=== PATIENT | female | born 1945 | race Caucasian/White ===

== ENCOUNTER 2019-06-27 05:15 | Inpatient (IN) | payer MEDICARE ==
[2019-06-21 09:50] LABS: BASOPHILS # (AUTO) 0.1 (0.0-0.1); BASOPHILS % 0.8 % (0.0-1.0); EOSINOPHILS # (AUTO) 0.1 (0.0-0.4); EOSINOPHILS % 1.5 % (0.0-6.0); HEMATOCRIT 41.6 % (34.2-44.1); HEMOGLOBIN 13.5 g/dL (12.0-16.0); LYMPHOCYTES # (AUTO) 2.3 (1.0-3.2); LYMPHOCYTES % 35.3 % (18.0-39.1); MEAN CORPUSCULAR HEMOGLOBIN 29.6 pg (28-32); MEAN CORPUSCULAR HGB CONC 32.5 g/dL (31-35); MEAN CORPUSCULAR VOLUME 91.2 fL (81-99); MONOCYTES # (AUTO) 0.6 (0.2-0.8); MONOCYTES % 9.7 % (4.4-11.3); NEUTROPHILS # (AUTO) 3.4 (2.1-6.9); NEUTROPHILS % 52.5 % (38.7-80.0); PLATELET COUNT 216 x10e3/uL (140-360); RED BLOOD COUNT 4.56 x10e6/uL (3.6-5.1); RED CELL DISTRIBUTION WIDTH 13.4 % (11.7-14.4)
[2019-06-21 10:12] LABS: ANION GAP 12.5 mmol/L (8-16); CALCIUM 9.5 mg/dL (8.4-10.2); CREATININE, SERUM 0.92 mg/dL (0.57-1.11); POTASSIUM 4.5 mmol/L (3.5-5.1)
--- NOTE | 2019-06-21 10:15 | Diagnostic Imaging Report ---
Exam: PA and lateral chest radiograph Clinical history: Preoperative clearance next Findings: The cardiac size is mildly enlarged. There is no evidence of pulmonary consolidation, pleural effusion, or pneumothorax. A 1 mm calcific density structure is seen overlying the mid thoracic vertebra on the lateral The represents a calcified granuloma. The regional osseous structures are unremarkable. Impression: 1. Mild cardiomegaly. Otherwise, no radiographic evidence of acute cardiorespiratory disease. Signed by: Dr. Julio Nieto MD on 06/21/2019 10:12 AM
[~2019-06-27] VITALS: Ht 160 cm; Wt 124.7 kg
[~2019-06-27 05:15] MED LIST: GABAPENTIN300 MG PO; HYDROCHLOROTHIA25 MG PO; LEVOTHYROXINE50 MCG PO; METOPROLOL TART50 MG PO
--- OUTSIDE RECORDS SUMMARY | 2019-06-27 05:17 | XMS REPORT | Summary of Care ---
Author Author [facility] - Health Organization [facility] - Health Address Unknown Phone Unavailable Care Team Providers Care Grill Chef Name Role Phone Yenny Chew MD PCP Reason for Visit * Reason Comments Rx Concern/Question Encounter Details Care Team Description Date Type Department Yenny Chew MD [address] [place] [address] Dr [facility] [address] [place] [address] Rx Concern/Question 11/17/[address] [facility]- [address], [address] [place] [address] Allergies Comments Active Allergy Reactions Severity Noted Date Morphine Hallucination 12/24/2015 s documented as of this encounter (statuses as of 11/19/2018) Medications End Date Status Medication Sig Dispensed Refills Start Date Active VIT Take by 0 CALC,IRON,FOLIC ( mouth. VITAMIN ORAL) Active wugm-eytqhn-pyd#7-C-logan- Take 600 mg 90 tablet 3 boron by mouth 8 (GLUCOSAMINE-CHONDR, daily. DESIRAE,) 178-020-54-1-3 mg TabIndications: Chronic bilateral low back pain with bilateral sciatica, Sciatic leg pain Active Alpha Lipoic Acid 600 mg Start with 90 capsule 3 CapIndications: Chronic 300 mg for a 8 bilateral low back pain week. with bilateral sciatica, Increase to Sciatic leg pain 600 mg daily if there are no problems. Active montelukast 10 mg Take 1 tablet 30 tablet 0 tabletIndications: by mouth 8 Allergic cough daily. Active hydroCHLOROthiazide 50 mg Take 0.5 45 tablet 3 tabletIndications: tablets by 8 Essential hypertension, mouth daily. benign Active metoprolol tartrate 50 mg Take 1 tablet 270 tablet 3 tabletIndications: by mouth 3 8 Essential hypertension, (three) times benign daily. Active ibuprofen (ADVIL) 200 mg Take 200 mg 0 tablet by mouth every 6 (six) hours as needed. Active gabapentin 300 mg capsule TAKE BY MOUTH 3 1 CAPSULE IN 9 THE MORNING AND AT NOON AND 2 CAPSULES AT NIGHT Active Nebulizer & Compressor Use as 1 Device 0 For Neb DeviIndications: directed 9 Wheezing Active levothyroxine 25 mcg Take 1 tablet 30 tablet 11 tabletIndications: by mouth 9 Essential hypertension, every benign morning. Active cyclobenzaprine 10 mg Take 1 tablet 15 tablet 0 tabletIndications: Right by mouth 3 9 lower quadrant abdominal (three) times pain daily as needed for Muscle Spasms. Active gabapentin 300 mg TAKE BY MOUTH 120 capsule 3 capsuleIndications: 1 CAPSULE IN 9 Sciatic leg pain, Chronic THE MORNING bilateral low back pain AND AT NOON with bilateral sciatica AND 2 CAPSULES AT NIGHT Active gabapentin 100 mg Take 1 180 capsule 1 capsuleIndications: capsule by 9 Sciatic leg pain mouth 2 (two) times daily. 11/19/2018 Discontinued gabapentin 100 mg Take 1 180 capsule 1 capsuleIndications: capsule by 9 Sciatic leg pain mouth 2 (two) times daily. Take 1 pill three times a day. documented as of this encounter (statuses as of 11/19/2018) Active Problems Problem Noted Date Trochanteric bursitis of both hips 05/04/2018 Overview: Added automatically from request for surgery [id number] Sacroiliac joint pain 05/04/2018 Overview: Added automatically from request for surgery [id number] Lumbar radiculopathy, right 09/04/2017 Overview: Added automatically from request for surgery [id number] Chronic bilateral low back pain with bilateral sciatica 09/04/2017 Overview: Added automatically from request for surgery [id number] Essential hypertension, benign 07/04/2016 Sciatic leg pain 07/04/2016 Morbid obesity with BMI of 40.0-44.9, adult 01/21/2016 UTI (lower urinary tract infection) 01/07/2016 Total knee replacement status 11/12/2015 Arthralgia of both knees 10/23/2015 Right leg pain 08/24/2015 documented as of this encounter (statuses as of 11/19/2018) Immunizations Name Administration Dates Next Due Influenza High Dose 01/29/2018 Pneumococcal 13 01/29/2018 Conjugate, PCV13 (Prevnar 13) documented as of this encounter Social History Date Tobacco Use Types Packs/Day Years Used Never Smoker Smokeless Tobacco: Never Used Drinks/Week oz/Week Comments Alcohol Use 0 Standard drinks or equivalent 0.0 No Sex Assigned at Date Recorded Not on file Industry Job Start Date Occupation Not on file Not on file Not on file Travel End Travel History Travel Start No recent travel history available. documented as of this encounter Last Filed Vital Signs Not on filedocumented in this encounter Plan of Treatment Care Team Description Date Type Specialty Harshal Comer DO [facility] [place] [address] [phone] 03/31/2019 Office Visit Pulmonary Disease Yenny Chew MD [address] [place] [address] Dr [address] [place] [address] [phone] 04/01/2019 Office Visit Internal Medicine Health Maintenance Due Date Last Done Comments DTaP,Tdap,and Td Vaccines 1962 (1 - Tdap) Osteoporosis Screening 2008 INFLUENZA VACCINE 12/26/2018 01/29/2018, 01/26/2017 Zoster Recombinant 02/28/2019 Postponed from 1993 Vaccine (SHINGRIX) (1 of (Parent Refused) 2) Medicare Wellness Visit 03/16/2019 03/16/2018, 03/16/2017 MAMMOGRAM 04/13/2019 04/13/2018, 04/01/2017, 03/16/2017 (Previously completed) COLONOSCOPY 01/22/2025 01/22/2015 PNEUMOCOCCAL VACCINES 65+ Completed 01/29/2018, 03/16/2017, 03/16/2017 documented as of this encounter Implants Device Identifier Shelf Expiration Date Model / Serial / Lot Implanted Type Area Manufactur er 05/27/2019 [id number] / [id number] / [id number] Bone Cement With Gentamycin CEMENT Right: Knee Dipika Implanted: Qty: 1 on 11/12/2015 by Kashmir Arrington MD at [facility] 05/27/2019 [id number] / [id number] / [id number] Bone Cement With Gentamycin CEMENT Left: Knee Dipika Implanted: Qty: 1 on 01/21/2016 by Kashmir Arrington MD at [facility] 05/27/2019 [id number] / [id number] / [id number] Bone Cement With Gentamycin CEMENT Left: Knee Dipika Implanted: Qty: 1 on 01/21/2016 by Kashmir Arrington MD at [facility] 08/27/2025 [id number] / [id number] / [id number] Ps Open Box Femoral Right KNEE Right: Knee Biomet Implanted: Qty: 1 on 11/12/2015 by Kashmir Arrington MD at [facility] 07/24/2025 [id number] / [id number] / [id number] Regenerex Primary Tibial Tray KNEE Right: Knee Biomet Implanted: Qty: 1 on 11/12/2015 by Kashmir Arrington MD at [facility] 06/18/2025 [id number] / [id number] / [id number] Modular Finned Stem KNEE Right: Knee Biomet Implanted: Qty: 1 on 11/12/2015 by Kashmir Arrington MD at [facility] 09/04/2020 [id number] / [id number] / [id number] Ps Tibial Bearing KNEE Right: Knee Biomet Implanted: Qty: 1 on 11/12/2015 by Kashmir Arrington MD at [facility] 08/25/2020 [id number] / [id number] / [id number] Series - A Standard Patella KNEE Right: Knee Biomet Implanted: Qty: 1 on 11/12/2015 by Kashmir Arrington MD at [facility] 12/10/2025 [id number] / [id number] / [id number] Ps Open Box Femoral Left KNEE Left: Knee Biomet Implanted: Qty: 1 on 01/21/2016 by Kashmir Arrington MD at [facility] 10/18/2020 [id number] / [id number] / [id number] Series A Standard Patella KNEE Left: Knee Biomet Implanted: Qty: 1 on 01/21/2016 by Kashmir Arrington MD at [facility] 09/07/2020 [id number] / [id number] / [id number] Ps Tibial Bearing KNEE Left: Knee Biomet Implanted: Qty: 1 on 01/21/2016 by Kashmir Arrington MD at [facility] 10/25/2024 [id number] / [id number] / [id number] Fixed Cruciate Tibial Plate With PLATE Left: Knee Biomet Locking Bar Implanted: Qty: 1 on 01/21/2016 by Kashmir Arrington MD at [facility] documented as of this encounter Results Not on filedocumented in this encounter Visit Diagnoses Diagnosis Sciatic leg pain documented in this encounter Insurance Type Payer Benefit Subscriber ID Effective Phone Address Plan / Dates Group Medicare Adv PPO AETNA - MANAGED MEDICARE AETNA [id number] 2015-P P O BOX MEDICARE resent [id number] [place] [address] documented as of this encounter
--- OUTSIDE RECORDS SUMMARY | 2019-06-27 05:18 | XMS REPORT | Summary of Care ---
Author Author [facility] - Health Organization [facility] - Health Address Unknown Phone Unavailable Care Team Providers Care Program Aide Group Work Name Role Phone Yenny Chew MD PCP Harshal Comer DO Unavailable Sebastián Rudd MD 3 Reason for Visit * Reason Comments Pre-op Clearance [facility] Encounter Details Care Team Description Date Type Department Pauline Dupree MD [address] [place] [address] [address] [place] [address] Pre-op Clearance ([facility]) 06/23/2019 Telephone [facility] Cardiology- [address], [address] [place] [address] Allergies Comments Active Allergy Reactions Severity Noted Date Morphine Hallucination 12/24/2015 s documented as of this encounter (statuses as of 06/23/2019) Medications End Date Status Medication Sig Dispensed Refills Start Date Active VIT Take by 0 CALC,IRON,FOLIC ( mouth. VITAMIN ORAL) Active zubw-jfqgkl-yny#7-C-logan- Take 600 mg 90 tablet 3 boron by mouth 8 (GLUCOSAMINE-CHONDR, daily. DESIRAE,) 374-256-35-1-3 mg TabIndications: Chronic bilateral low back pain with bilateral sciatica, Sciatic leg pain Active Alpha Lipoic Acid 600 mg Start with 90 capsule 3 CapIndications: Chronic 300 mg for a 8 bilateral low back pain week. with bilateral sciatica, Increase to Sciatic leg pain 600 mg daily if there are no problems. Active ibuprofen (ADVIL) 200 mg Take 200 mg 0 tablet by mouth every 6 (six) hours as needed. Active levothyroxine 25 mcg Take 1 tablet 30 tablet 11 tabletIndications: by mouth 9 Essential hypertension, every benign morning. Active fluticasone propionate 50 Use 1 [place] 16 g 2 mcg/actuation nasal in each 9 sprayIndications: nostril 2 Allergic rhinitis, (two) times unspecified seasonality, daily. unspecified trigger Active ALBUTEROL 2.5 mg /3 mL INHALE 3 ML 75 mL 3 (0.083 %) nebulizer EVERY 4 9 solutionIndications: (FOUR) HOURS Wheezing NEEDED FOR WHEEZING OR SHORTNESS OF BREATH. Active gabapentin 300 mg Take 1 270 capsule 3 capsuleIndications: capsule by 9 Sciatic leg pain, Chronic mouth 3 bilateral low back pain (three) times with bilateral sciatica daily. Active hydroCHLOROthiazide 50 mg Take 0.5 45 tablet 3 tabletIndications: tablets by 9 Essential hypertension, mouth daily. benign Active metoprolol tartrate 50 mg Take 1 tablet 270 tablet 3 tabletIndications: by mouth 3 9 Essential hypertension, (three) times benign daily. documented as of this encounter (statuses as of 06/23/2019) Active Problems Problem Noted Date Trochanteric bursitis of both hips 05/04/2018 Overview: Added automatically from request for surgery [id number] Sacroiliac joint pain 05/04/2018 Overview: Added automatically from request for surgery [id number] Lumbar radiculopathy, right 09/04/2017 Overview: Added automatically from request for surgery [id number] Chronic bilateral low back pain with bilateral sciatica 09/04/2017 Overview: Added automatically from request for surgery [id number] Essential hypertension, benign 07/04/2016 Sciatic leg pain 07/04/2016 Morbid obesity with BMI of 40.0-44.9, adult 01/21/2016 UTI (lower urinary tract infection) 01/07/2016 Total knee replacement status 11/12/2015 Arthralgia of both knees 10/23/2015 Right leg pain 08/24/2015 documented as of this encounter (statuses as of 06/23/2019) Immunizations Name Administration Dates Next Due Influenza High Dose 01/25/2019, 01/29/2018 Pneumococcal 13 01/29/2018 Conjugate, PCV13 (Prevnar 13) Td 04/01/2016 documented as of this encounter Social History [...] Treatment Care Team Description Date Type Specialty Pauline Dupree MD [address] [place] [address] [address] [place] [address] [phone] 11/02/2019 Office Visit Cardiology Harshal Comer DO [facility] [place] [phone] 04/05/2020 Office Visit Pulmonary Disease Health Maintenance Due Date Last Done Comments Medicare Wellness Visit 04/01/2020 04/01/2019, 03/16/2018, 03/16/2017 Zoster Recombinant 04/01/2020 Postponed from 1993 Vaccine (SHINGRIX) (1 of (Refused) 2) DTaP,Tdap,and Td Vaccines 05/10/2025 04/01/2016 Postponed from 1954 (1 - Tdap) (Alternative Guidelines) Osteoporosis Screening 04/12/2029 04/12/2019 PNEUMOCOCCAL VACCINES 65+ Completed 01/29/2018, 03/16/2017, 03/16/2017 INFLUENZA VACCINE Completed 01/25/2019, 01/29/2018 documented as of this encounter Implants Device Identifier Shelf Expiration Date Model / Serial / Lot Implanted Type Area Manufactur er 05/27/2019 [id number] / [id number] / [id number] Bone Cement With Gentamycin CEMENT Right: Knee Dipika Implanted: Qty: 1 on 11/12/2015 by Kashmir Arrington MD at [facility] 05/27/2019 23-7426-231-01 / [id number] / [id number] Bone Cement With Gentamycin CEMENT Left: Knee Dipika Implanted: Qty: 1 on 01/21/2016 by Kashmir Arrington MD at [facility] 05/27/2019 31-1243-703-01 / [id number] / [id number] Bone Cement With Gentamycin CEMENT Left: Knee Dipika Implanted: Qty: 1 on 01/21/2016 by Kashmir Arrington MD at [facility] 08/27/2025 [id number] / [id number] / [id number] Ps Open Box Femoral Right KNEE Right: Knee Biomet Implanted: Qty: 1 on 11/12/2015 by Kashmir Arrington MD at [facility] 07/24/2025 [id number] / [id number] / [id number] Regenerex Primary Tibial Tray KNEE Right: Knee Biomet Implanted: Qty: 1 on 11/12/2015 by Kashmir Arrington MD at [facility] 06/18/2025 [id number] / [id number] / [id number] Modular Finned Stem KNEE Right: Knee Biomet Implanted: Qty: 1 on 11/12/2015 by Kashmir Arrington MD at [facility] 09/04/2020 [id number] / [id number] / [id number] Ps Tibial Bearing KNEE Right: Knee Biomet Implanted: Qty: 1 on 11/12/2015 by Kashmir Arrington MD at [facility] 08/25/2020 [id number] / [id number] / [id number] Series - A Standard Patella KNEE Right: Knee Biomet Implanted: Qty: 1 on 11/12/2015 by Kashmir Arrington MD at [facility] 12/10/2025 [id number] / [id number] / [id number] Ps Open Box Femoral Left KNEE Left: Knee Biomet Implanted: Qty: 1 on 01/21/2016 by Kashmir Arrington MD at [facility] 10/18/2020 [id number] / [id number] / [id number] Series A Standard Patella KNEE Left: Knee Biomet Implanted: Qty: 1 on 01/21/2016 by Kashmir Arrington MD at [facility] 09/07/2020 [id number] / [id number] / [id number] Ps Tibial Bearing KNEE Left: Knee Biomet Implanted: Qty: 1 on 01/21/2016 by Kashmir Arrington MD at [facility] 10/25/2024 [id number] / [id number] / [id number] Fixed Cruciate Tibial Plate With PLATE Left: Knee Biomet Locking Bar Implanted: Qty: 1 on 01/21/2016 by Kashmir Arrington MD at [facility] documented as of this encounter Results Not on filedocumented in this encounter Insurance Type Payer Benefit Subscriber ID Effective Phone Address Plan / Dates Group Medicare Adv PPO AETNA - MANAGED MEDICARE AETNA [id number] 2015-P [address] BOX MEDICARE resent [id number] [place] [id number] documented as of this encounter
--- OUTSIDE RECORDS SUMMARY | 2019-06-27 05:18 | XMS REPORT ---
Author Author [facility] Address Unknown Phone Unavailable Care Team Providers Care Clinician Oncology Name Role Phone Jamie JOHNSON Unavailable Unavailable Problems This patient has no known problems. Allergies, Adverse Reactions, Alerts This patient has no known allergies or adverse reactions. Medications This patient has no known medications. Results Test Description Test Time Test Comments Text Results Atomic Results Result Comments CHEST 2 VIEWS 2019-06-21 10:10:00 [place] [address] Patient Name: VEE ALLEN MR #: [id number] : 1945 Age/Sex: 74/F Req #: [id number] [facility] Physician: Ordered by: GRAYSON JOHNSON MD Report #: [id number] Location: OR Room/Bed: Procedure: [id number] DX/CHEST 2 VIEWS Exam Date: 06/21/19 Exam Time: 0953 REPORT STATUS: Signed Exam: PA and lateral chest radiograph Clinical history: Preoperative clearance next Findings: The cardiac size is mildly enlarged. There is no evidence of pulmonary consolidation, pleural effusion, or pneumothorax. A 1 mm calcific density structure is seen overlying the mid thoracic vertebra on the lateral The represents a calcified granuloma. The regional osseous structures are unremarkable. Impression: 1. Mild cardiomegaly. Otherwise, no radiographic evidence of acute cardiorespiratory disease. Signed by: Dr. Julio Nieto MD on 06/21/2019 10:12 AM Dictated By: ROSA M NIETO MD 1012 Transcribed By: RAMON on 06/21/19 1012 COPY TO: GRAYSON JOHNSON MD
--- OUTSIDE RECORDS SUMMARY | 2019-06-27 05:18 | XMS REPORT | Summary of Care ---
Author Author [facility] - Health Organization [facility] - Health Address Unknown Phone Unavailable Care Team Providers Care Grey Iron Molder Name Role Phone Yenny Chew MD PCP Harshal Comer DO Unavailable Sebastián Rudd MD 3 Encounter Details Care Team Description Date Type Department Doctor Unassigned, [place] [address] [place] [address] 04/28/2019 Orders Only [facility] [address] [place] [address] Allergies Comments Active Allergy Reactions Severity Noted Date Morphine Hallucination 12/24/2015 s documented as of this encounter (statuses as of 05/18/2019) Medications End Date Status Medication Sig Dispensed Refills Start Date Active VIT Take by 0 CALC,IRON,FOLIC ( mouth. VITAMIN ORAL) Active pvqd-ikdgsn-byj#7-C-logan- Take 600 mg 90 tablet 3 boron by mouth 8 (GLUCOSAMINE-CHONDR, daily. DESIRAE,) 419-115-57-1-3 mg TabIndications: Chronic bilateral low back pain [...] morning. Active fluticasone propionate 50 Use 1 [place] 16 g 2 mcg/actuation nasal in each [...] as of this encounter (statuses as of 05/18/2019) Active Problems Problem Noted Date Trochanteric bursitis of both hips 05/04/2018 Overview: Added automatically from request for surgery [id number] Sacroiliac joint pain 05/04/2018 Overview: Added automatically from request for surgery [id number] Lumbar radiculopathy, right 09/04/2017 Overview: Added automatically from request for surgery [id number] Chronic bilateral low back pain with bilateral sciatica 09/04/2017 Overview: Added automatically from request for surgery [id number] Essential hypertension, benign 07/04/2016 Sciatic leg pain 07/04/2016 Morbid obesity with BMI of 40.0-44.9, adult 01/21/2016 UTI (lower urinary tract infection) 01/07/2016 Total knee replacement status 11/12/2015 Arthralgia of both knees 10/23/2015 Right leg pain 08/24/2015 documented as of this encounter (statuses as of 05/18/2019) Immunizations Name Administration Dates Next Due Influenza [...] Description Date Type Specialty Pauline Dupree MD [address] [place] [address] [address] [place] [address] [phone] 11/02/2019 Office Visit Cardiology Harshal Comer DO [address] [place] [phone] 04/05/2020 Office Visit Pulmonary Disease Health Maintenance Due Date Last Done Comments Medicare Wellness Visit 04/01/2020 04/01/2019, 03/16/2018, 03/16/2017 Zoster Recombinant 04/01/2020 Postponed from 1993 Vaccine (SHINGRIX) (1 of (Refused) 2) Breast Cancer Screening 04/12/2020 04/12/2019, 04/13/2018, 04/01/2017, (MAMMOGRAM) Additional history exists COLONOSCOPY 01/22/2025 01/22/2015 DTaP,Tdap,and Td Vaccines 05/10/2025 04/01/2016 Postponed from 1954 (1 - Tdap) (Alternative Guidelines) Osteoporosis Screening 04/12/2029 04/12/2019 PNEUMOCOCCAL VACCINES 65+ Completed 01/29/2018, 03/16/2017, 03/16/2017 INFLUENZA VACCINE Completed 01/25/2019, 01/29/2018 documented as of this encounter Implants Device Identifier Shelf Expiration Date Model / Serial / Lot Implanted Type Area Manufactur er 05/27/2019 [id number] / [id number] / [id number] Bone Cement With Gentamycin CEMENT Right: Knee Dipika Implanted: Qty: 1 on 11/12/2015 by Kashmir Arrington MD at [facility] 05/27/2019 [id number] / [id number] / [id number] Bone Cement With Gentamycin CEMENT Left: Knee Dipika Implanted: Qty: 1 on 01/21/2016 by Kashmir Arrington MD at [facility] 05/27/201906-7574-607-01 / [id number] / [id number] Bone Cement With Gentamycin CEMENT Left: Knee Dipika Implanted: Qty: 1 on 01/21/2016 by Kashmir Arrington MD at [facility] 08/27/2025 [id number] / [id number] / [id number] Ps Open Box Femoral Right KNEE Right: Knee Biomet Implanted: Qty: 1 on 11/12/2015 by Kashmir Arrington MD at [facility] 07/24/2025 [id number] / [id number] / [id number] Regenerex Primary Tibial Tray KNEE Right: Knee Biomet Implanted: Qty: 1 on 11/12/2015 by Kashmir Arrington MD at [facility] 06/18/2025 [id number] / [id number] / [id number] Modular Finned Stem KNEE Right: Knee Biomet Implanted: Qty: 1 on 11/12/2015 by Kashmir Arrington MD at [facility] 09/04/2020 [id number] / [id number] / [id number] Ps Tibial Bearing KNEE Right: Knee Biomet Implanted: Qty: 1 on 11/12/2015 by Kashmir Arrington MD at [facility] 08/25/2020 [id number] / [id number] / [id number] Series - A Standard Patella KNEE Right: Knee Biomet Implanted: Qty: 1 on 11/12/2015 by Kashmir Arrington MD at [facility] 12/10/2025 [id number] / [id number] / [id number] Ps Open Box Femoral Left KNEE Left: Knee Biomet Implanted: Qty: 1 on 01/21/2016 by Kashmir Arrington MD at [facility] 10/18/2020 [id number] / [id number] / [id number] Series A Standard Patella KNEE Left: Knee Biomet Implanted: Qty: 1 on 01/21/2016 by Kashmir Arrington MD at [facility] 09/07/2020 [id number] / [id number] / [id number] Ps Tibial Bearing KNEE Left: Knee Biomet Implanted: Qty: 1 on 01/21/2016 by Kashmir Arrington MD at [facility] 10/25/2024 [id number] / [id number] / [id number] Fixed Cruciate Tibial Plate With PLATE Left: Knee Biomet Locking Bar Implanted: Qty: 1 on 01/21/2016 by Kashmir Arrington MD at [facility] documented as of this encounter Procedures Comments Procedure Name Priority Date/Time Associated Diagnosis PATIENT QUESTIONNAIRE Routine 04/28/2019 12:01 AM CHARGE NURSE documented in this encounter Results Not on filedocumented in this encounter Insurance Type Payer Benefit Subscriber ID Effective Phone Address Plan / Dates Group Medicare Adv PPO AETNA - MANAGED MEDICARE AETNA [id number] 2015-P [address]OX MEDICARE resent [id number] [place] [id number] documented as of this encounter
--- OUTSIDE RECORDS SUMMARY | 2019-06-27 05:18 | XMS REPORT | Summary of Care ---
Author Author [facility] - Health Organization [facility] - Health Address Unknown Phone Unavailable Care Team Providers Care Lean Manufacturing Engineer Name Role Phone Yenny Chwe MD PCP Harshal Comer DO Unavailable Sebastián Rudd MD 3 Reason for Visit * Reason Comments Results Encounter Details Care Team Description Date Type Department Yenny Chew MD [address] [place] [address] [address] [place] [address] Results 05/10/2019 Telephone [facility]- [address] , [address] [place] [address] Allergies Comments Active Allergy Reactions Severity Noted Date Morphine Hallucination 12/24/2015 s documented as of this encounter (statuses as of 05/10/2019) Medications End Date Status Medication Sig Dispensed Refills Start Date Active VIT Take by 0 CALC,IRON,FOLIC ( mouth. VITAMIN ORAL) Active rmsr-tqdrmt-xud#7-C-logan- Take 600 mg 90 tablet 3 boron by mouth 8 (GLUCOSAMINE-CHONDR, daily. DESIRAE,) 405-158-23-1-3 mg TabIndications: Chronic bilateral low back pain [...] morning. Active fluticasone propionate 50 Use 1 [place] 16 g 2 mcg/actuation nasal in each [...] as of this encounter (statuses as of 05/10/2019) Active Problems Problem Noted Date Trochanteric bursitis of both hips 05/04/2018 Overview: Added automatically from request for surgery [id number] Sacroiliac joint pain 05/04/2018 Overview: Added automatically from request for surgery [id number] Lumbar radiculopathy, right 09/04/2017 Overview: Added automatically from request for surgery [id number] Chronic bilateral low back pain with bilateral sciatica 09/04/2017 Overview: Added automatically from request for surgery [id number] Essential hypertension, benign 07/04/2016 Sciatic leg pain 07/04/2016 Morbid obesity with BMI of 40.0-44.9, adult 01/21/2016 UTI (lower urinary tract infection) 01/07/2016 Total knee replacement status 11/12/2015 Arthralgia of both knees 10/23/2015 Right leg pain 08/24/2015 documented as of this encounter (statuses as of 05/10/2019) Immunizations Name Administration Dates Next Due Influenza [...] Description Date Type Specialty Pauline Dupree MD [address] [place] [address] [place] [id number] [phone] 11/02/2019 Office Visit Cardiology Harshal Comer DO [address] [place] [address] 04/05/2020 Office Visit Pulmonary Disease Health Maintenance [...] Lot Implanted Type Area Manufactur er 05/27/2019 [id number] / [id number] / [id number] Bone Cement With Gentamycin CEMENT Right: Knee Dipika Implanted: Qty: 1 on 11/12/2015 by Kashmir Arrington MD at [facility] 05/27/2019 [id number] / [id number] / [id number] Bone Cement With Gentamycin CEMENT Left: Knee Dipika Implanted: Qty: 1 on 01/21/2016 by Kashmir Arrington MD at [facility] 05/27/2019 [id number] / [id number] / [id number] Bone Cement With Gentamycin CEMENT Left: Knee Dipika Implanted: Qty: 1 on 01/21/2016 by Kashmir Arrington MD at [facility] 08/27/2025 [id number] / [id number] / [id number] Ps Open Box Femoral Right KNEE Right: Knee Biomet Implanted: Qty: 1 on 11/12/2015 by Kashmir Arrington MD at [facility] 07/24/2025 [id number] / [id number] / [id number] Regenerex Primary Tibial Tray KNEE Right: Knee Biomet Implanted: Qty: 1 on 11/12/2015 by Kashmir Arrington MD at [facility] 06/18/2025 [id number] / [id number] / [id number] Modular Finned Stem KNEE Right: Knee Biomet Implanted: Qty: 1 on 11/12/2015 by Kashmir Arrington MD at [facility] 09/04/2020 [id number] / [id number] / [id number] Ps Tibial Bearing KNEE Right: Knee Biomet Implanted: Qty: 1 on 11/12/2015 by Kashmir Arrington MD at [facility] 08/25/2020 [id number] / [id number] / [id number] Series - A Standard Patella KNEE Right: Knee Biomet Implanted: Qty: 1 on 11/12/2015 by Kashmir Arrington MD at [facility] 12/10/2025 [id number] / [id number] / [id number] Ps Open Box Femoral Left KNEE Left: Knee Biomet Implanted: Qty: 1 on 01/21/2016 by Kashmir Arrington MD at [facility] 10/18/2020 [id number] / [id number] / [id number] Series A Standard Patella KNEE Left: Knee Biomet Implanted: Qty: 1 on 01/21/2016 by Kashmir Arrington MD at [facility] 09/07/2020 [id number] / [id number] / [id number] Ps Tibial Bearing KNEE Left: Knee Biomet Implanted: Qty: 1 on 01/21/2016 by Kashmir Arrington MD at [facility] 10/25/2024 [id number] / [id number] / [id number] Fixed Cruciate Tibial Plate With PLATE Left: Knee Biomet Locking Bar Implanted: Qty: 1 on 01/21/2016 by Kashmir Arrington MD at [facility] documented as of this encounter Results Not on filedocumented in this encounter Insurance Type Payer Benefit Subscriber ID Effective Phone Address Plan / Dates Group Medicare Adv PPO AETNA - MANAGED MEDICARE AETNA [id number] 2015-P [address] MEDICARE resent [id number] [place] [id number] documented as of this encounter
--- OUTSIDE RECORDS SUMMARY | 2019-06-27 05:18 | XMS REPORT | Summary of Care ---
Author Author [facility] - Health Organization [facility] - Health Address Unknown Phone Unavailable Care Team Providers Care Public Safety Telecommunicator Name Role Phone Yenny Chew MD PCP Reason for Visit * Reason Comments Refill Request Encounter Details Care Team Description Date Type Department Yenny Chew MD [address] [place] [address] Dr [facility] [address] [place], [place] [id number] Refill Request 11/17/2018 Refill [facility] Adult Primary [facility]- [address], [address] [place] [phone] Allergies Comments Active Allergy Reactions Severity Noted Date Morphine Hallucination 12/24/2015 s documented as of this encounter (statuses as of 11/19/2018) Medications End Date Status Medication Sig Dispensed Refills Start Date Active VIT Take by 0 CALC,IRON,FOLIC ( mouth. VITAMIN ORAL) Active zxnl-pxvsei-qzz#7-C-logan- Take 600 mg 90 tablet 3 boron by mouth 8 (GLUCOSAMINE-CHONDR, daily. DESIRAE,) 944-426-44-1-3 mg TabIndications: Chronic bilateral low back pain [...] CAPSULES AT NIGHT Active gabapentin 100 mg TAKE ONE 270 capsule 3 capsuleIndications: CAPSULE BY 9 Sciatic leg pain MOUTH 3 TIMES A DAY Active gabapentin 100 mg Take 1 180 capsule 1 capsuleIndications: capsule by 9 Sciatic leg pain mouth 2 (two) times daily. documented as of this encounter (statuses as of 11/19/2018) Active Problems Problem Noted Date Trochanteric bursitis of both hips 05/04/2018 Overview: Added automatically from request for surgery [id number] Sacroiliac joint pain 05/04/2018 Overview: Added automatically from request for surgery [id number] Lumbar radiculopathy, right 09/04/2017 Overview: Added automatically from request for surgery [id number] Chronic bilateral low back pain with bilateral sciatica 09/04/2017 Overview: Added automatically from request for surgery [id number] Essential hypertension, benign 07/04/2016 Sciatic leg pain [...] Treatment Care Team Description Date Type Specialty Anastasia ComeremberDO lilia [address] [place] [phone] 03/31/2019 Office Visit Pulmonary Disease Yenny Chew MD [address] [place] [address] Dr [place] [place], [place] [address] 04/01/2019 Office Visit Internal Medicine Health Maintenance [...] Lot Implanted Type Area Manufactur er 05/27/2019 [id number] / [id number] / [id number] Bone Cement With Gentamycin CEMENT Right: Knee Dipika Implanted: Qty: 1 on 11/12/2015 by Kashmir Arrington MD at [facility] 05/27/2019 [id number] / [id number] / [id number] Bone Cement With Gentamycin CEMENT Left: Knee Dipika Implanted: Qty: 1 on 01/21/2016 by Kashmir Arrington MD at [facility] 05/27/2019 [id number] / [id number] / [id number] Bone Cement With Gentamycin CEMENT Left: Knee Dipika Implanted: Qty: 1 on 01/21/2016 by Kashmir Arrington MD at [facility] 08/27/2025 [id number] / [id number] / [id number] Ps Open Box Femoral Right KNEE Right: Knee Biomet Implanted: Qty: 1 on 11/12/2015 by Kashmir Arrington MD at [facility] 07/24/2025 [id number] / [id number] / [id number] Regenerex Primary Tibial Tray KNEE Right: Knee Biomet Implanted: Qty: 1 on 11/12/2015 by Kashmir Arrington MD at [facility] 06/18/2025 [id number] / [id number] / [id number] Modular Finned Stem KNEE Right: Knee Biomet Implanted: Qty: 1 on 11/12/2015 by Kashmir Arrington MD at [facility] 09/04/2020 [id number] / [id number] / [id number] Ps Tibial Bearing KNEE Right: Knee Biomet Implanted: Qty: 1 on 11/12/2015 by Kashmir Arrington MD at [facility] 08/25/2020 [id number] / [id number] / [id number] Series - A Standard Patella KNEE Right: Knee Biomet Implanted: Qty: 1 on 11/12/2015 by Kashmir Arirngton MD at [facility] 12/10/2025 [id number] / [id number] / [id number] Ps Open Box Femoral Left KNEE Left: Knee Biomet Implanted: Qty: 1 on 01/21/2016 by Kashmir Arrington MD at [facility] 10/18/2020 [id number] / [id number] / [id number] Series A Standard Patella KNEE Left: Knee Biomet Implanted: Qty: 1 on 01/21/2016 by Kashmir Arrington MD at [facility] 09/07/2020 [id number] / [id number] / [id number] Ps Tibial Bearing KNEE Left: Knee Biomet Implanted: Qty: 1 on 01/21/2016 by Kashmir Arrington MD at [facility] 10/25/2024 [id number] / [id number] / [id number] Fixed Cruciate Tibial Plate With PLATE Left: Knee Biomet Locking Bar Implanted: Qty: 1 on 01/21/2016 by Kashmir Arrington MD at [facility] documented as of this encounter Results Not on filedocumented in this encounter Visit Diagnoses Diagnosis Sciatic leg pain documented in this encounter Insurance Type Payer Benefit Subscriber ID Effective Phone Address Plan / Dates Group Medicare Adv PPO AETNA - MANAGED MEDICARE AETNA [id number] 2015-P [address] MEDICARE resqueenie [id number] [place] [id number] documented as of this encounter
[2019-06-27] MEDS ORDERED: CEFAZOLIN SOD 1 GM/NS 50ML 100 ML IV ONE (06:04)
[2019-06-27] MEDS ORDERED: BUPIVACAINE HCL 0.5% INJ 30 ML VIAL INJ ONE (06:20)
[2019-06-27] MEDS ORDERED: ACETAMINOPHEN 1000 MG/100 ML 100 ML IV ONE (06:58)
[2019-06-27] MEDS ORDERED: LIDOCAINE HCL (LTA) 4 ML SOLN ONE (06:58)
[2019-06-27] MEDS ORDERED: SUGAMMADEX SODIUM 200 MG/2 ML VIAL IV ONE (06:58)
[2019-06-27] MEDS ORDERED: SCOPOLAMINE 1.5 MG PATCH ONE (06:58)
[2019-06-27] MEDS: SODIUM CHLORIDE 0.9% 1000ML 1,000 ML IV SCH ×2 (08:02→17:14)
[2019-06-27] MEDS ORDERED: SCOPOLAMINE 1.5 MG PATCH TOP SCH (08:15)
[2019-06-27] MEDS ORDERED: HYDROMORPHONE 0.2MG/ML-SOD CHL 30ML PCA SYRINGE IV PRN (08:15)
[2019-06-27] MEDS ORDERED: NALOXONE HCL INJ 0.4 MG/ML AMP IV PRN (08:15)
[2019-06-27] MEDS ORDERED: METOCLOPRAMIDE HCL 10 MG/2ML VIAL ONE (09:06)
--- NOTE | 2019-06-27 10:22 | History and Physical ---
CHIEF COMPLAINT: "I have weight loss surgery." HISTORY OF PRESENT ILLNESS: This is a 74-year-old white woman, who was initially admitted to [facility] with diagnosis of extreme obesity, BMI 48, complicating underlying hypertension and hypertensive heart disease. Today, patient underwent successful laparoscopic sleeve gastrectomy, was performed by Dr. Sebastián Rudd. The patient states her pain is well controlled with intravenous hydromorphone. The patient voiced no complaints. REVIEW OF SYSTEMS: GENERAL: Weight has been stable. No fever or chills. HEENT: No headaches. No vision changes. CARDIOVASCULAR/RESPIRATORY: No chest pain. No shortness of breath or cough. GI: Patient states her abdominal pain is well controlled. : Perez catheter removed. NEUROMUSCULAR: No limb weakness or numbness. PAST MEDICAL HISTORY: 1. Extreme obesity, BMI of 48. 2. Hypertension. 3. Peripheral neuropathy. 4. Hypothyroidism. PAST SURGICAL HISTORY: 1. Bilateral total knee replacement in 2016. 2. Laparoscopic sleeve gastrectomy today. ALLERGIES: MORPHINE. SOCIAL HISTORY: She is , lives with her . She is currently retired. No history of tobacco or alcohol use. The patient states she has multiple family members at home, they can assist her when she is discharged. HOME MEDICATIONS: 1. Gabapentin 300 mg t.i.d. 2. Hydrochlorothiazide 25 mg daily. 3. Levothyroxine 25 mcg daily. 4. Metoprolol tartrate 50 mg t.i.d. PHYSICAL EXAMINATION: GENERAL: She is awake, alert. She is fully oriented. She is currently in the postanesthesia care unit. She is in no obvious distress. VITAL SIGNS: Blood pressure is 132/70, heart rate is 72, respiratory rate 16, oxygen saturation is 97% on 3 L oxygen, temperature 97.1, height 5 feet 3 inches, weight is 275 pounds. BMI 48. INTEGUMENT: Skin is warm and dry. No pallor, jaundice, or diaphoresis. HEENT: Anterior sclerae. Moist mucous membranes. NECK: Supple. No evidence of jugular venous distention. CARDIOVASCULAR: Distant heart sounds. Regular rate and rhythm. LUNGS: No rales. No rhonchi or wheezes. ABDOMEN: Obese and benign. No bowel sounds are appreciated. The patient's laparoscopic incisions are clean, dry, and intact. EXTREMITIES: No edema or deformity. She is currently wearing sequential compression devices. NEUROLOGIC: Intact. No gross focal deficits appreciated. DIAGNOSES: 1. Extreme obesity, BMI 48, complicated underlying hypertension. 2. Status post laparoscopic sleeve gastrectomy. 3. Hypertensive heart disease. 4. Hypothyroidism. PLAN: 1. Pain control. 2. Encourage incentive spirometry usage to prevent atelectasis. 3. Blood pressure monitoring and control. 4. Continue home blood pressure medications. 5. Mobilize patient. 6. We will start enoxaparin to prevent deep venous thrombosis. I would like to thank Dr. Rudd for involving me in the care of this patient. I spent 40 minutes in the care of this patient. MD ROMAN Dodge/BRETT /[id number] MTDSerenity
[2019-06-27] MEDS ORDERED: FENTANYL CITRATE/PF 100MCG/2 ML INJ ONE ×2 (12:00→17:36)
[2019-06-27 13:04] VITALS: BP 157/71
--- NOTE | 2019-06-27 13:04 | NUR ---
Received patient from PACU lying in bed with eyes open. Respiration even and unlabored. 5 laparoscopic incisions in abdomen with derma nobles. no bleeding noted. Family member at bedside. Denies pain at this time. Call light in reach.
--- NOTE | 2019-06-27 14:59 | Operative Report ---
DATE OF PROCEDURE: 06/27/2019 SURGEON: Sebastián Rudd MD PREOPERATIVE DIAGNOSES: 1. Morbid obesity, BMI 50. 2. Hypertension. POSTOPERATIVE DIAGNOSES: 1. Morbid obesity, BMI 50. 2. Hypertension. PREOPERATIVE INDICATION: Treat disease, prevent complications related to comorbid conditions of obesity. PROCEDURES: Laparoscopic vertical sleeve gastrectomy. ANESTHESIA: General. SHAREPOINT APPLICATION DEVELOPER: Geraldo Gonzalez, doctor assistant (needed due to complexity of case). FLUIDS: 1 L of crystalloid. ESTIMATED BLOOD LOSS: 10 mL. DRAINS: None. COMPLICATIONS: None. SPECIMENS: Partial stomach. GRAFTS: None. FINDINGS: 1. Normal upper GI anatomy. 2. Negative intraoperative leak test. PROCEDURE IN DETAIL: The patient was brought to the operating room and was intubated under general endotracheal anesthesia. She was sterilely prepped and draped in the usual fashion. A preprocedure pause was performed identifying the patient, use of preoperative antibiotics, intended procedure, and staff surgeon. Access was gained via a 5 mm left subcostal incision using a Veress needle. The abdomen was insufflated. Four additional trocars were placed in the standard positions. The liver retractor was used to expose the stomach. I mobilized the greater curvature of stomach using the [place] LigaSure device from about 3 cm proximal to the pyloric valve to the left kelley of the diaphragm. Once that was complete, I then inserted the 32-Slovenian bougie/suctioning device along the lesser curvature of the stomach. The greater curvature of stomach was resected with 6 firings of a 60 mm purple load Covidien stapling device, which was reinforced with TRS. Once that was complete, we submerged the sleeve under saline and performed intraoperative leak test by insufflating the bougie. No leaks were identified. The bougie was removed. Prior to removing the bougie, the stomach was desufflated and suctioned off. The specimen was removed through the right periumbilical port site. The port site was closed with 0 Vicryl suture using a Rafiq Bey technique. We then verified hemostasis, removed the liver retractor, and desufflated the abdomen. Incision sites were closed with 4-0 Monocryl suture in a subcuticular fashion. The trocars were removed. Dermabond dressings were applied. A 0.25% bupivacaine was used both at the preperitoneal incision sites. The patient tolerated the procedure well. Type of wound was type 2, clean, contaminated. All surgical sponge and instrument counts were correct. MD XIANG Chandler/DUANEL /[id number]
[2019-06-27] MEDS: GABAPENTIN 300 MG CAP PO SCH ×2 (15:57→20:44)
[2019-06-27] MEDS: METOPROLOL TARTRATE 50 MG TAB PO SCH ×2 (15:57→20:43)
[2019-06-27] MEDS: HYDROMORPHONE 1MG/1ML INJ IV PRN ×2 (16:13→23:13)
[2019-06-27] MEDS: ONDANSETRON HCL INJ 2MG/ML 2ML 2 MG/ML VIAL IV PRN ×2 (16:14→23:13)
[2019-06-27 16:21] VITALS: BP 146/65
[2019-06-27] MEDS: HYDROCHLOROTHIAZIDE 25 MG TAB PO SCH (17:14)
[2019-06-27] MEDS ORDERED: ROCURONIUM BROMIDE 10 MG/ML 5ML VIAL ONE (17:19)
[2019-06-27] MEDS ORDERED: SEVOFLURANE INHAL SOLN 250 ML PEN BTL ONE (17:19)
[2019-06-27] MEDS ORDERED: NEOSTIGMINE 1 MG/ML 10ML VIAL ONE (17:19)
[2019-06-27] MEDS ORDERED: GLYCOPYRROLATE INJ 0.2 MG/ML VIAL ONE (17:19)
[2019-06-27] MEDS ORDERED: EPHEDRINE SULFATE INJ 50 MG/ML VIAL ONE (17:19)
[2019-06-27] MEDS ORDERED: DEXAMETHASONE SOD PHOS INJ 4 MG/ML VIAL ONE (17:19)
[2019-06-27] MEDS ORDERED: LIDOCAINE HCL 2% JELLY 5 ML TUBE ONE (17:19)
[2019-06-27] MEDS ORDERED: LIDOCAINE HCL 2% LOCAL INJ 5 ML SDV VIAL INJ ONE (17:19)
[2019-06-27] MEDS ORDERED: PROPOFOL IV EMULSION 10 MG/ML 20 ML VIAL ONE (17:19)
[2019-06-27] MEDS ORDERED: ONDANSETRON HCL INJ 2MG/ML 2ML 2 MG/ML VIAL ONE (17:19)
--- NOTE | 2019-06-27 18:50 | NUR ---
Report given to night nurse. Respiration even and unlabored without SOB. Call light in reach.
[2019-06-27 20:00] VITALS: BP 129/58
[2019-06-27] MEDS ORDERED: HYDROCODONE/APAP 7.5MG-325MG 1 EA TAB PO PRN (20:19)
[2019-06-27 20:34] VITALS: BP 129/58
--- NOTE | 2019-06-27 20:34 | NUR ---
PATIENT COMPLAIN OF HEADACHE AND REQUESTED FOR TYLENOL. PAGED . WAITING FOR RESPONSE.
[2019-06-27] MEDS: ENOXAPARIN SOD INJ 40 MG/0.4 ML SYR SC SCH (20:43)
--- NOTE | 2019-06-27 21:00 | NUR ---
PT AMBULATES WITH WALKER NO PROBLEM.
--- NOTE | 2019-06-27 22:30 | NUR ---
PATIENT AMBULATES IN THE HALLWAY WITH WALKER.
[2019-06-27 23:52] VITALS: BP 150/67
[2019-06-28] MEDS: SODIUM CHLORIDE 0.9% 1000ML 1,000 ML IV SCH ×3 (00:02→08:02)
--- NOTE | 2019-06-28 04:00 | NUR ---
Patient refused scd's and hilary hatch.
[2019-06-28 04:40] VITALS: BP 134/60
[2019-06-28 05:39] LABS: BASOPHILS % 0.2 % (0.0-1.0); HEMATOCRIT 38.2 % (34.2-44.1); HEMOGLOBIN 12.1 g/dL (12.0-16.0); LYMPHOCYTES # (AUTO) 1.8 (1.0-3.2); MEAN CORPUSCULAR HEMOGLOBIN 29.2 pg (28-32); MEAN CORPUSCULAR HGB CONC 31.7 g/dL (31-35); MONOCYTES # (AUTO) 0.8 (0.2-0.8); MONOCYTES % 7.2 % (4.4-11.3); NEUTROPHILS # (AUTO) 8.5 (2.1-6.9); NEUTROPHILS % 76.3 % (38.7-80.0); PLATELET COUNT 189 x10e3/uL (140-360); RED BLOOD COUNT 4.15 x10e6/uL (3.6-5.1); RED CELL DISTRIBUTION WIDTH 13.6 % (11.7-14.4)
[2019-06-28] MEDS ORDERED: LEVOTHYROXINE SODIUM 25 MCG TABLET PO SCH (06:00)
[2019-06-28 06:03] LABS: ALBUMIN 3.6 g/dL (3.5-5.0); ALBUMIN/GLOBULIN RATIO 1.1 (0.8-2.0); ANION GAP 10.9 mmol/L (8-16); CALCIUM 8.7 mg/dL (8.4-10.2); CREATININE, SERUM 0.98 mg/dL (0.57-1.11); MAGNESIUM 1.8 MG/DL (1.3-2.1); PHOSPHORUS 2.6 MG/DL (2.3-4.7); POTASSIUM 3.9 mmol/L (3.5-5.1)
[2019-06-28] MEDS ORDERED: HYDROCODONE/APAP 7.5MG-325MG 1 EA TAB PO PRN (07:15)
--- NOTE | 2019-06-28 07:17 | NUR ---
Progress Note S: Gas pain, otherwise doing well and ambulating O: AF, VSS General- no acute distress Abdomen- soft, incisions c/d/i A/P: POD 1, s/p Lap sleeve gastrectomy for morbid obesity (BMI 50) and HTN -Clears, ambulate, IS, OOB to chair -F/u and diet instructions given to patient
[2019-06-28] MEDS: ONDANSETRON HCL INJ 2MG/ML 2ML 2 MG/ML VIAL IV PRN (07:18)
[2019-06-28] MEDS ORDERED: SIMETHICONE 80 MG CHEW PO PRN (07:30)
[2019-06-28 08:00] VITALS: BP 146/64
[2019-06-28 08:19] VITALS: BP 146/64
[2019-06-28] MEDS: ENOXAPARIN SOD INJ 40 MG/0.4 ML SYR SC SCH (08:47)
[2019-06-28] MEDS: HYDROCHLOROTHIAZIDE 25 MG TAB PO SCH (08:47)
[2019-06-28] MEDS: METOPROLOL TARTRATE 50 MG TAB PO SCH (08:48)
[2019-06-28] MEDS: GABAPENTIN 300 MG CAP PO SCH (08:48)
[2019-06-28] MEDS ORDERED: LEVOTHYROXINE SODIUM 50 MCG TAB PO SCH (09:00)
--- NOTE | 2019-06-28 09:50 | Discharge Summary ---
ADMIT DIAGNOSES: 1. Extreme obesity, BMI 48, complicating underlying hypertension. 2. Hypertensive heart disease. 3. Hypothyroidism. DISCHARGE DIAGNOSES: 1. Status post laparoscopic sleeve gastrectomy. 2. Extreme obesity, BMI 48, complicating hypertensive heart disease. 3. Hypertensive heart disease. 4. Hypothyroidism. HOSPITAL COURSE: This is a 74-year-old white woman, who was initially admitted to [facility] [place] with diagnosis of extreme obesity, BMI 48, complicating underlying hypertension. During this hospitalization, the patient underwent a laparoscopic vertical sleeve gastrectomy performed by Dr. Sebastián Rudd. The patient tolerated the surgery quite well. During the surgery, the patient underwent intraoperative leak test, which was negative. The patient's brief hospitalization was unremarkable. On discharge, she was tolerating clear liquid diet. DISCHARGE MEDICATIONS: 1. Tylenol No.3 one pill every 4 hours p.r.n. pain, 25 prescribed, no refills. 2. Zofran 4 mg every 6 hours p.r.n. nausea and vomiting, 20 prescribed, no refills. 3. Metoprolol 50 mg t.i.d. 4. Levothyroxine 25 mcg daily. 5. Hydrochlorothiazide 25 mg daily. 6. Gabapentin 300 mg t.i.d. FOLLOWUP INSTRUCTIONS: The patient instructed to follow up with Dr. Sebastián uRdd within 1 week and with her primary care physician within 2 weeks. MD ROMAN Dodge/BRETT /[id number] cc: Sebastián Rudd MD
--- NOTE | 2019-06-28 09:55 | NUR ---
PIV to right hand discontinued, catheter tip intact, no bleeding noted.
[2019-06-28] MEDS ORDERED: KETOROLAC TROMETHAMINE 30 MG/ML VIAL ONE (10:02)
--- NOTE | 2019-06-28 10:08 | NUR ---
Discharge education provided, verbalized understanding. Prescription given. Patient is transported via wheelchair to private vehicle with all personal belongings taken by daughter.
[2019-06-28] MEDS ORDERED: TYLENOL WITH C1 EACH PO (10:14)
[2019-06-28] MEDS ORDERED: ZOFRAN4 MG PO (10:15)
== END 2019-06-28 10:08 | disposition home or self-care (01) | DRG 621 ==
LOC: OR 05:15 → PACU V 08:27 → OBSVTOIN 09:50 → MED/SURG 13:03
PROVIDERS: ADMIT Internal Medicine; ATTEND Internal Medicine
PROC: 0DB64Z3 Excision of Stomach, Percutaneous Endoscopic Approach, Vertical (ICD-10-PCS; principal; 2019-06-27 07:00)
DX: E66.01 Morbid (severe) obesity due to excess calories (principal); Z68.42 Body mass index [BMI] 45.0-49.9, adult; I11.9 Hypertensive heart disease without heart failure; E03.9 Hypothyroidism, unspecified; G62.9 Polyneuropathy, unspecified; Z96.653 Presence of artificial knee joint, bilateral; Z88.5 Allergy status to narcotic agent
CPT/HCPCS: 36415; 71046; 80048; 80053; 83735; 84100; 85025; 93005; J0690; J1100; J1170; J1650; J1885; J2001; J2405; J2710; J2765; J3010; J7030